=== PATIENT | female | born 1990 | race Caucasian/White ===

== ENCOUNTER 2016-12-06 08:00 | Inpatient (IN) ==
[2016-12-06] MEDS ORDERED: miSOPROStol 25 MCG TABLET VG PRN (08:27)
[2016-12-06] MEDS ORDERED: Ondansetron 4 MG/2 ML VIAL IVP PRN ×4 (08:27→23:04)
[2016-12-06] MEDS ORDERED: Famotidine 20 MG/2 ML VIAL IVP PRN (08:27)
[2016-12-06] MEDS ORDERED: Naloxone 0.4 MG/ML INJ IVP PRN (08:27)
[2016-12-06] MEDS ORDERED: D5% in Lactated Ringers 1,000 ML IVC SCH (08:30)
[2016-12-06] MEDS ORDERED: Ringers Solution, Lactated 2,000 ML ONE (09:02)
[2016-12-06 09:11] LABS: Basophils % 0.3 %; Eosinophils # 0.2 K/mcL (0.0-0.6); Eosinophils % 1.7 %; Hematocrit 33.4 % (35.3-44.9); Hemoglobin 10.5 g/dL (11.5-15.4); Immature Granulocytes % 2.5 % (0-4); Lymphocytes # 1.6 K/mcL (0.6-4.6); Lymphocytes % 15.9 %; Mean Corpuscular HGB Conc 31.4 g/dL (31.6-35.5); Mean Corpuscular Hemoglobin 25.2 pg (28.0-33.3); Mean Corpuscular Volume 80.3 fL (83.0-100.0); Mean Platelet Volume 9.6 fL (9.4-12.4); Monocytes # 0.9 K/mcL (0.0-1.3); Monocytes % 8.6 %; Neutrophils # 7.1 K/mcL (1.6-8.9); Platelet Count 277 K/mcL (140-400); Red Blood Count 4.16 M/mcL (3.82-4.97); Red Cell Distribution Width 15.6 % (11.5-14.5)
--- NOTE | 2016-12-06 09:13 | OB/GYN History & Physical ---
Date of Encounter: 12/06/16 Time of Encounter: 09:11 Assessment and Plan (1) 39 weeks gestation of Current visit: Yes Status: Acute (2) Elective induction of labor planned Current visit: Yes Status: Acute History of Present Illness HPI: Ms. Macias is a 26 year old female Patient is a 3 para 2 white female admitted for induction of labor at 39 weeks and 3/7. Patient been followed in the office without any significant problems. She denies spontaneous rupture membranes, vaginal bleeding, contractions and reports active fetus. Past Med Surg Social Fam HX - Past Medical History Medical history: no medical history Psychiatric history: no psych history - Past Surgical History Surgical History: no surgical history - Social History Smoking Status: Never smoker Smokeless Tobacco Status: No Alcohol use: none Drug use: none - Family History Mother Living Status: Still Living Hx Family Cardiac Disorders: No Hx Family Respiratory Disorders: No Hx Family Cancer: No Hx Family GI Disorders: No Hx Family Genitourinary Disorders: No Hx Family Endocrine Disorder: No Hx Family Musculoskeletal Disorders: No Hx Family Neuromuscular Disorders: No Hx Family Neurologic Disorders: No Hx Family HEENT Disorders: No Hx Family Autoimmune Disorders: No Hx Family Reproductive Disorders: No Hx Family Psychosocial Disorders: No Hx Family Medical Disorders: No Obstetrical History - Pregnancies : 3 Para: 2 Medications and Allergies Vit/FA [ Vit/FA] 1 tab PO DAILY 06/14/15 [History] HYDROcodone/Acet 5/325 mg [[place] 5-325 mg] 1 tab PO Q6H PRN #16 tab 08/31/16 [Rx ] Allergies No Known Allergies Allergy (Verified 06/14/15 08:57) Review of System OB All systems PM: reviewed and no additional remarkable complaints except as stated - Genitourinary Genitourinary: amenorrhea - Menstruation Menstruation: amenorrhea Exam - Vital Signs Vital signs: Initial Vital Signs Pulse Resp BP Pulse Ox 106 12 131/73 100 12/06/16 08:53 12/06/16 08:53 12/06/16 08:53 12/06/16 08:53 - Constitutional Constitutional: well developed, well nourished, no acute distress, average body habitus - HEENT HEENT: Normocephaly - Neck Neck exam: full ROM - Lungs Respiratory exam: CTAB - Cardiovascular Cardiovascular exam: RRR - Abdomen Abdomen: Present: gravid, non tender - Extremities Extremities exam: full ROM Deep Tendon Reflex Grade: 2+ Normal - Vulva Vulva: bilateral: normal - Vagina Vagina: Present: normal moisture - Cervix Dilation: 2 Effacement: 60 Station: -1 - Uterus Uterus exam: Present: enlarged - Anus/Rectum Anus/Rectum: Present: normal perianal skin Results All other labs normal. - VTE Reasons for not Prescribing Prophylaxis: Treatment not Indicated - Low risk for VTE
[2016-12-06] MEDS ORDERED: Ringers Solution, Lactated 1,000 ML IVC SCH (09:15)
[2016-12-06] MEDS ORDERED: miSOPROStol 100 MCG TABLET PO SCH (09:15)
[2016-12-06] MEDS ORDERED: Ringers Solution, Lactated 1,000 ML IVC ONE (09:15)
[2016-12-06] MEDS ORDERED: miSOPROStol 100 MCG TABLET PO ONE (09:30)
--- NOTE | 2016-12-06 13:26 | OB/GYN Progress Note ---
Date of Encounter: 12/06/16 Time of Encounter: 13:24 - Assessment and Plan (1) 39 weeks gestation of Current Visit: Yes Status: Acute (2) Elective induction of labor planned Current Visit: Yes Status: Acute IUPC placed Subjective - Subjective Interval history: Comfortable . Objective - Vital Signs Vital Signs: Vital Signs Pulse Resp BP Pulse Ox 12/06/16 08:53 106 12 131/73 100 Intake and Output 12/05/16 12/06/16 12/06/16 23:59 07:59 15:59 Other: Weight 92.3 kg Patient Weight 12/06/16 23:59 Weight 92.3 kg - Exam FHR: category 1 Cervical dilation: 2-3 Cervix effacement: 60 station: -1 - Labs Labs: Abnormal lab results Hgb 10.5 g/dL (11.5-15.4) L 12/06/16 08:53 Hct 33.4 % (35.3-44.9) L 12/06/16 08:53 MCV 80.3 fL (83.0-100.0) L 12/06/16 08:53 MCH 25.2 pg (28.0-33.3) L 12/06/16 08:53 MCHC 31.4 g/dL (31.6-35.5) L 12/06/16 08:53 RDW 15.6 % (11.5-14.5) H 12/06/16 08:53
[2016-12-06] MEDS ORDERED: Epidural Premix (fent/bupiv) 110 ML EP SCH (13:30)
[2016-12-06] MEDS ORDERED: Epidural Premix (fent/bupiv) 110 ML EP ONE (13:30)
--- NOTE | 2016-12-06 14:18 | Anesthesia Evaluation PreOp ---
Date of Encounter: 12/06/16 Time of Encounter: 13:30 - Past History Planned Operation: BIANKA Cardiac History: Denies any Significant Hx Pulmonary History: Denies Any Significant HX RESOURCE SPECIALIST History: Denies Any Significant HX Other Medical History: Denies Any Significant HX Anesthesia History: No Prior Anesthetic Complications : Yes Test: Positive Alcohol Use: none Drug use: none Medications and Allergies Vit/FA [ Vit/FA] 1 tab PO DAILY 06/14/15 [History] HYDROcodone/Acet 5/325 mg [[place] 5-325 mg] 1 tab PO Q6H PRN #16 tab 08/31/16 [Rx ] Allergies No Known Allergies Allergy (Verified 06/14/15 08:57) - Meds/Allergy Pre-op Review Medications Reviewed: Yes Allergies Reviewed: Yes Beta Blockers on Current Med List: No Anesthesia Results - Labs 12/06/16 08:53 Anesthesia Exam - HEENT Pupil (Motor): Pupils equal Mallampati: II Teeth: Normal Oral Opening: Greater than 3 - RESOURCE SPECIALIST LOC: Oriented RESOURCE SPECIALIST Motor: Normal RUE, Normal LUE, Normal RLE, Normal LLE, Normal Face RESOURCE SPECIALIST Sensory: Normal: RUE, LUE, RLE, LLE, Face - Cardiac Rhythm: Regular Murmur: None JVD: No Carotid Bruit: No - Pulmonary Breath Sounds: bilateral Clear Respiratory Effort: Symmetrical Anesthesia Assess/Plan ASA Score: 2 Modified Corona Scale for Level of Consciousness: Cooperative, oriented, and tranquil Anesthetic Plan: Regional Autologous Blood: No Monitoring Plan: Standard Monitors
--- NOTE | 2016-12-06 14:20 | Anesthesia Procedures ---
Date of Encounter: 12/06/16 Time of Encounter: 13:30 Procedures: Anesthesia - Epidural/Spinal Patient ID/Chart reviewed: Yes OB Eval: Gestational age: 39.3 OB Eval: : 3 OB Eval: Hx Para: 2 OB Eval: Dilated at (cm): 3 OB Eval: Contractions: Non-stressed pattern Consent Obtained: Yes Supplemental Oxygen: None/Room Air Site Prep: Aseptic Technique, Sterile prep and drape, Povidone-Iodine 1% Patient position: upright Local Anesthetic: Lidocaine 1% Amount of Local Anesthetic used: 3 Touhy Needle Gauge: 18 Touhy Needle Depth (cm): 4 Catheter Depth at Skin (cm): 8 Test Dose (1.5% Lido + Epi): Volume given (mls): 3 Test Dose Result: Negative Infusion Med: 0.125% Bupivacaine w/ 2 mcg/ml Fentanyl Infusion Rate (mls/hr): [address]: Tegaderm, Tape Interspace Used: L3-L4 Loss of Resistance (CLAUDE): Yes Blood: No CSF: No Paresthesia: No Vitals + FHT's: stanle see nursing notes
--- NOTE | 2016-12-06 14:57 | OB/GYN Progress Note ---
Date of Encounter: 12/06/16 Time of Encounter: 14:54 - Assessment and Plan (1) 39 weeks gestation of Current Visit: Yes Status: Acute (2) Elective induction of labor planned Current Visit: Yes Status: Acute IUPC placed Subjective - Subjective Interval history: Comfortable with epidural . Objective - Vital Signs Vital Signs: Vital Signs Pulse Resp BP Pulse Ox 12/06/16 08:53 106 12 131/73 100 Intake and Output 12/05/16 12/06/16 12/06/16 23:59 07:59 15:59 Other: Weight 92.3 kg Patient Weight 12/06/16 23:59 Weight 92.3 kg - Exam FHR: category 1 Cervical dilation: 4-5 Cervix effacement: 60 station: -1/AROM ; clear . IUPC placed . - Labs Labs: Abnormal lab results Hgb 10.5 g/dL (11.5-15.4) L 12/06/16 08:53 Hct 33.4 % (35.3-44.9) L 12/06/16 08:53 MCV 80.3 fL (83.0-100.0) L 12/06/16 08:53 MCH 25.2 pg (28.0-33.3) L 12/06/16 08:53 MCHC 31.4 g/dL (31.6-35.5) L 12/06/16 08:53 RDW 15.6 % (11.5-14.5) H 12/06/16 08:53
[2016-12-06] MEDS ORDERED: Oxytocin 20 units/ LR 1000 mL 20 UNIT/1,000 ML BAG IVC SCH ×2 (15:21→23:04)
[2016-12-06] MEDS ORDERED: *HR* Succinylcholine 200 MG/10 ML VIAL IVP ONE (19:16)
[2016-12-06] MEDS ORDERED: *HR* Propofol 200 MG/20 ML VIAL IVP ONE (19:16)
[2016-12-06] MEDS ORDERED: *HR* Morphine Sulfate/PF 5 MG/10 ML AMPUL ONE (19:26)
[2016-12-06] MEDS ORDERED: *HR* HYDROmorphone (PF) 1 MG/ML SYRINGE IVP PRN (19:29)
[2016-12-06] MEDS ORDERED: *HR* Promethazine 25 MG/ML VIAL IVP PRN (19:29)
[2016-12-06] MEDS ORDERED: *HR* OxyCODONE/APAP 5/325 TABLET PO PRN ×2 (19:29→20:40)
[2016-12-06] MEDS ORDERED: *HR* Phenylephrine 10 MG/ML VIAL ONE (19:39)
--- NOTE | 2016-12-06 20:38 | OB/GYN Procedure Note ---
Section - Date of procedure: 12/06/16 Preop diagnosis: other malpresentation Post-op diagnosis: same Procedure: primary low transverse (Emergent) Surgeon: Raf Camarena Estimated blood loss (cc): 900 Anesthesiologist: Yoana Box Anesthesia Type: General section complications: none Disposition: PACU Specimens: Placenta - (s) Infant A Delivery Date: 12/06/16 Infant Delivery Time: 19:26 Presentation: compound Position: OA Gender: Male Viability: Viable Pounds: 10 Ounces: 4 at 1 minute: 8 at 5 minutes: 10 Specimens collected: cord blood Placenta: complete extraction - Narrative Narrative: I was called to the patient's laboring room for concern of a hand presentation. This was confirmed. The arm had prolapsed through the cervix. Decision was made to proceed with stat section. Patient was taken to the operating room and placed in supine position. She is prepped and draped in usual manner. After satisfactory anesthesia was achieved, the abdomen was entered through standard Maylard incision. The Renay retractor was placed. The peritoneum overlying the lower uterine segment was incised in a U-shaped fashion. The uterine cavity was entered sharply and extended laterally. The head was delivered the prolapsed arm was delivered shoulders delivered with fundal pressure. The remainder of the infant was delivered without difficulty and the umbilical cord was doubly clamped and cut and the was handed to nursery staff for further evaluation. The placenta was removed and sent to pathology for analysis. The uterus brought from within the abdominal cavity and wiped clean. Uterus was closed with 0 Monocryl in single layer. Peritoneum was reapproximated using a 2-0 Vicryl. After assurance of hemostasis , the retractor was removed. The abdomen was closed in standard fashion using 0 Vicryl on the fascia and 3-0 Monocryl on the skin. Sterile dressing was applied. Patient did well and was taken to recovery room in satisfactory condition. Counts were correct.
[2016-12-06] MEDS ORDERED: Sennosides 8.6 MG TABLET PO PRN ×2 (20:40→23:04)
[2016-12-06] MEDS ORDERED: Simethicone 80 MG TAB.CHEW PO PRN ×2 (20:40→23:04)
[2016-12-06] MEDS ORDERED: Metoclopramide 10 MG/2 ML VIAL IVP PRN (20:40)
[2016-12-06] MEDS ORDERED: Ibuprofen 600 MG TABLET PO PRN (20:40)
[2016-12-06] MEDS: *HR* OxyCODONE/APAP 5/325 TABLET PO PRN (23:32)
[2016-12-07] MEDS: Ibuprofen 600 MG TABLET PO PRN ×3 (00:32→21:23)
[2016-12-07] MEDS ORDERED: Lanolin 7 G OINT...G. TP PRN (02:16)
[2016-12-07 05:20] LABS: Basophils % 0.1 %; Eosinophils % 0.1 %; Hematocrit 24.9 % (35.3-44.9); Immature Granulocytes % 1.4 % (0-4); Immature Platelets 3.3 % (1.1-6.1); Lymphocytes % 8.2 %; Mean Corpuscular HGB Conc 31.7 g/dL (31.6-35.5); Mean Corpuscular Hemoglobin 25.6 pg (28.0-33.3); Mean Corpuscular Volume 80.8 fL (83.0-100.0); Mean Platelet Volume 9.6 fL (9.4-12.4); Monocytes # 1.2 K/mcL (0.0-1.3); Monocytes % 6.8 %; Neutrophils # 14.7 K/mcL (1.6-8.9); Platelet Count 217 K/mcL (140-400); Red Blood Count 3.08 M/mcL (3.82-4.97); Red Cell Distribution Width 15.5 % (11.5-14.5); Segmented Neutrophils % 83.4 %
[2016-12-07 05:22] LABS: Hemoglobin 7.9 g/dL (11.5-15.4); Lymphocytes # 1.4 K/mcL (0.6-4.6)
[2016-12-07] MEDS: *HR* OxyCODONE/APAP 5/325 TABLET PO PRN ×3 (06:15→18:29)
--- NOTE | 2016-12-07 08:10 | OB/GYN Progress Note ---
Date of Encounter: 12/07/16 Time of Encounter: 08:08 - Assessment and Plan (1) Status post primary low transverse section Current Visit: Yes Status: Acute Continue routine /postop care possible discharge home tomorrow. (2) Breast feeding status of mother Current Visit: Yes Status: Acute support prn Subjective - Subjective Principal diagnosis: Postop day 1 primary c/s for malpresentation Interval history: Patient resting in bed. Patient denies any pain at this time. IV pitocin infusing at this time. Clear yellow urine draining in pollock catheter. PETAR dressing on, clean, dry and intact. Patient reports: appetite normal, pain well controlled Four States: doing well, nursing well (pumping at this time) Objective - Vital Signs Latest vital signs: Vital Signs Temp Pulse Resp BP Pulse Ox 12/07/16 06:15 98.2 F 89 14 109/70 98 12/07/16 01:40 97.9 F 94 14 120/71 97 12/07/16 00:30 98.6 F 88 14 113/73 96 12/06/16 23:30 98.7 F 80 14 112/80 96 12/06/16 23:00 98.6 F 89 16 118/75 97 12/06/16 22:30 98.8 F 79 20 122/75 98 12/06/16 08:53 106 12 131/73 100 Intake and Output 12/06/16 12/07/16 12/07/16 23:59 07:59 15:59 Intake Total 500 / 500 Output Total 450 / 450 1550 / 1550 Balance -450 / -450 -1050 / -1050 Intake: Oral 500 / 500 Output: Catheter 450 / 450 1550 / 1550 Other: Weight 85.956 kg - Exam Lungs: bilateral: normal Chest: Normal S1, Normal S2 Extremities: Present: normal Abdomen: Present: normal appearance, soft Incision: Present: normal, dry, intact, dressed Uterus: Present: normal, firm Fundal Height: 2 (U/2) Comments: light lochia without clots - Labs Labs: Laboratory Results - last 24 hr 12/06/16 12/07/16 08:53 04:57 WBC 10.0 17.6 H D RBC 4.16 3.08 L Hgb 10.5 L 7.9 L D Hct 33.4 L 24.9 L MCV 80.3 L 80.8 L MCH 25.2 L 25.6 L MCHC 31.4 L 31.7 RDW 15.6 H 15.5 H Plt Count 277 217 MPV 9.6 9.6 Immature Gran % 2.5 1.4 Seg Neutrophils % 71.0 83.4 Lymphocytes % 15.9 8.2 Monocytes % 8.6 6.8 Eosinophils % 1.7 0.1 Basophils % 0.3 0.1 Neutrophils # 7.1 14.7 H Lymphocytes # 1.6 1.4 Monocytes # 0.9 1.2 Eosinophils # 0.2 0.0 Basophils # 0.0 0.0 Immature Plt Fraction 3.3
[2016-12-07] MEDS: Prenatal Vit/FA 1 EACH TABLET PO SCH (08:30)
[2016-12-07] MEDS ORDERED: Prenatal Vit/FA 1 EACH TABLET PO SCH (09:00)
[2016-12-07] MEDS ORDERED: [UNRECOGNIZED DRUG - MIXTURE] PO SCH (09:00)
[2016-12-08] MEDS: *HR* OxyCODONE/APAP 5/325 TABLET PO PRN ×2 (02:53→09:42)
[2016-12-08] MEDS: Ibuprofen 600 MG TABLET PO PRN (06:38)
[2016-12-08 07:00] LABS: Basophils # 0.1 K/mcL (0.0-0.2); Basophils % 0.4 %; Eosinophils # 0.2 K/mcL (0.0-0.6); Eosinophils % 1.7 %; Hematocrit 25.6 % (35.3-44.9); Hemoglobin 7.9 g/dL (11.5-15.4); Immature Granulocytes % 1.9 % (0-4); Lymphocytes # 1.9 K/mcL (0.6-4.6); Mean Corpuscular HGB Conc 30.9 g/dL (31.6-35.5); Mean Corpuscular Hemoglobin 25.2 pg (28.0-33.3); Mean Corpuscular Volume 81.5 fL (83.0-100.0); Mean Platelet Volume 9.4 fL (9.4-12.4); Monocytes # 0.9 K/mcL (0.0-1.3); Monocytes % 8.3 %; Platelet Count 208 K/mcL (140-400); Red Blood Count 3.14 M/mcL (3.82-4.97); Red Cell Distribution Width 16.3 % (11.5-14.5); Segmented Neutrophils % 70.7 %
[2016-12-08] MEDS: Prenatal Vit/FA 1 EACH TABLET PO SCH (08:20)
[2016-12-08 09:54] VITALS: BP 112/72
--- NOTE | 2016-12-08 10:22 | Discharge Summary ---
Date of Encounter: 12/08/16 Time of Encounter: 10:19 - Discharge Diagnosis (1) Status post primary low transverse section Priority: Primary Status: Acute Comments: Continue routine postop/ care discharge home today follow up with Dr. Camarena in 2 weeks for incision check (2) Breast feeding status of mother Priority: Secondary Status: Acute Comments: support prn (3) anemia Priority: Secondary Status: Acute Comments: start Ferrous sulfate daily - Discharge Medications Prescriptions: OxyCODONE/APAP 5/325 [Percocet 5/325 MG] 1 each PO Q4HR PRN #30 tablet PRN Reason: Moderate pain 4-6 Ibuprofen [Motrin] 600 mg PO Q6HR PRN #60 tablet PRN Reason: Cramping Docusate [Colace] 100 mg PO BID #60 capsule Ferrous Sulfate 325 mg PO DAILY #30 tablet Home Medications: Vit/FA 1 tab PO DAILY 06/14/15 [History] Docusate [Colace] 100 mg PO BID #60 capsule 12/08/16 [Rx] Ferrous Sulfate 325 mg PO DAILY #30 tablet 12/08/16 [Rx] Ibuprofen [Motrin] 600 mg PO Q6HR PRN #60 tablet 12/08/16 [Rx] OxyCODONE/APAP 5/325 [Percocet 5/325 MG] 1 each PO Q4HR PRN #30 tablet 12/08/16 [Rx] Vit/FA 1 each PO DAILY tablet 12/08/16 [Rx] Allergies/Adverse Reactions: Allergies No Known Allergies Allergy (Verified 06/14/15 08:57) Data Procedures and tests throughout hospitalization: Laboratory Tests 12/06/16 12/07/16 12/08/16 08:53 04:57 06:33 WBC 10.0 17.6 H D 11.3 H RBC 4.16 3.08 L 3.14 L Hgb 10.5 L 7.9 L D 7.9 L Hct 33.4 L 24.9 L 25.6 L MCV 80.3 L 80.8 L 81.5 L MCH 25.2 L 25.6 L 25.2 L MCHC 31.4 L 31.7 30.9 L RDW 15.6 H 15.5 H 16.3 H Plt Count 277 217 208 MPV 9.6 9.6 9.4 Immature Gran % 2.5 1.4 1.9 Seg Neutrophils % 71.0 83.4 70.7 Lymphocytes % 15.9 8.2 17.0 Monocytes % 8.6 6.8 8.3 Eosinophils % 1.7 0.1 1.7 Basophils % 0.3 0.1 0.4 Neutrophils # 7.1 14.7 H 8.0 Lymphocytes # 1.6 1.4 1.9 Monocytes # 0.9 1.2 0.9 Eosinophils # 0.2 0.0 0.2 Basophils # 0.0 0.0 0.1 Immature Plt Fraction 3.3 Labs on day of discharge: Labs from last 24 hours 12/08/16 06:33 WBC 11.3 H RBC 3.14 L Hgb 7.9 L Hct 25.6 L MCV 81.5 L MCH 25.2 L MCHC 30.9 L RDW 16.3 H Plt Count 208 MPV 9.4 Immature Gran % 1.9 Seg Neutrophils % 70.7 Lymphocytes % 17.0 Monocytes % 8.3 Eosinophils % 1.7 Basophils % 0.4 Neutrophils # 8.0 Lymphocytes # 1.9 Monocytes # 0.9 Eosinophils # 0.2 Basophils # 0.1 Date of admission: 12/06/16 08:21 Primary care physician: PCP BIB Discharging clinician: Iqra Amador Anticipated date of discharge: 12/08/16 - Patient Status Disposition: Home, Self-Care Condition: Good Functional capacity at discharge: independent ambulation - Discharge Instructions Follow Up With: BIB,PCP [Primary Care Provider] - Raf Camarena MD [Partnered Physician] - - Diet and Activity Activity: increase activity as tolerated Diet: regular diet Hospital Course Reason for admission: induction of labor Delivery: section (hand presentation) Other procedures: none complications: none Discharge diagnosis: IUP at term delivered baby: male (breast feeding) Hospital course: [facility] report reviewed by DARWIN Eagle prior to discharge. Time Attestation: Total time spent providing and/or coordinating discharge services: Time Spent: Less than 30 minutes - VTE Reasons for not Prescribing Prophylaxis: Treatment not Indicated - Low risk for VTE Documentation of Mechanical Device: Intermittent pneumatic compression device Exam - Constitutional Vitals: Temp Pulse Resp BP Pulse Ox 98.4 F 95 16 112/72 100 12/08/16 08:20 12/08/16 08:20 12/08/16 08:20 12/08/16 08:20 12/08/16 08:20 General appearance IM: A&O X 3, pleasant, answers questions appropriately - Respiratory Respiratory exam: Present: CTAB - Cardiovascular Cardiovascular exam IM: Present: RRR, +S1, +S2 - GI/Abdominal GI/Abdominal exam IM: normal bowel sounds Incision: normal, dry, intact, dressed (Blaine dressing) - Uterine Tone: Firm Uterus Position: 2 Fingers Below Umbilicus, Midline - Extremities Exam Extremities exam IM: Present: full ROM, normal capillary refill, normal inspection - Neurological Exam Neurological exam: alert, oriented X3, reflexes normal
== END 2016-12-08 11:50 | disposition home or self-care (01) | DRG 766 ==
LOC: 1NENULAB 08:21 → 1NENUOBS 23:12
PROVIDERS: ADMIT Obstetrics & Gynecology; ATTEND Obstetrics & Gynecology